=== PATIENT | male | born 1975 | race Caucasian/White ===

== ENCOUNTER 2016-12-20 08:57 | Emergency (ER) | payer OTHER ==
[~2016-12-20] VITALS: Ht 182.9 cm; Wt 62.2 kg
[2016-12-20 09:02] VITALS: TEMP 36.3; Ht 182.9 cm; Wt 62.2 kg
--- NOTE | 2016-12-20 09:22 | EMERGENCY ROOM VISIT NOTE ---
History Report prepared by Iron: Dimas Francisco Under the Supervision of: Dr. Demian Colindres D.O. First contact with patient: 09:06 Chief Complaint: ABDOMINAL PAIN Stated Complaint: ABDOMINAL PAIN ABOVE [place] History of Present Illness The patient is a 41 year old male who presents to the Emergency Room with complaints of waxing and waning abdominal pain that started around a month ago. The patient has also been having intermittent nausea. He says he has never had abdominal pain this bad before. The patient notes that the pain sometimes worsens when he crunches his abdomen upward. He denies any vomiting, hematuria, melena, or hematochezia. The patient takes Prilosec occasionally for ulcers. He had hernia surgery in 2002, and still has his gall bladder. The patient smokes a half a pack of cigarettes per day. He had his heart checked out in the beginning of November in [place] for occasional chest discomfort, and everything came back normal. He notes that he does a lot of heavy lifting at work. Source of History: patient Onset: A month ago Position: abdomen Timing: waxes/wanes Modifying Factors (Worsening): other (crunching abdomen upward) Associated Symptoms: + nausea, No hematochezia, No melena, No urinary symptoms, No vomiting Review of Systems See HPI for pertinent positives & negatives. A total of 10 systems reviewed and were otherwise negative. Past Medical & Surgical Medical Problems: (1) History of stomach ulcers Surgical Problems: (1) History of hernia surgery Family History Cancer Diabetes mellitus Gallbladder disease Heart disease Hypertension Kidney disease Seizures Social History Smoking Status: Current Every Day Smoker Alcohol Use: none Marital Status: Housing Status: lives with family Occupation Status: employed Current/Historical Medications Scheduled Omeprazole (Prilosec), 20 MG PO DAILY Omeprazole (Prilosec), 20 MG PO DAILY Allergies Coded Allergies: No Known Allergies (Unverified Allergy, Unknown, 04/30/03) Uncoded Allergies: NONE (Allergy, Unknown, 11/01/02) Physical Exam Vital Signs Date Time Temp Pulse Resp B/P Pulse Ox O2 Delivery O2 Flow Rate FiO2 12/20/16 14:13 72 18 116/88 98 12/20/16 13:12 51 12/20/16 11:29 49 16 116/67 98 Room Air 12/20/16 10:10 57 12/20/16 09:02 36.3 62 16 126/75 96 Room Air Physical Exam GENERAL: Patient is awake, alert, and in no acute distress. Patient is resting comfortably and showing no signs of anxiety EYES: The conjunctivae are clear. The pupils are round and reactive. EARS, NOSE, MOUTH AND THROAT: The nose is without any evidence of any deformity. Mucous membranes are moist tongue is midline NECK: The neck is nontender and supple. RESPIRATORY: Normal respiratory effort is noted there is no evidence of wheezing rhonchi or rales CARDIOVASCULAR: Regular rate and rhythm noted there no murmurs rubs or gallops normal S1 normal S2 GASTROINTESTINAL: The abdomen is soft. There was epigastric and right upper quadrant tenderness to palpation but no guarding or rigidity. BACK: No midline tenderness or or step-off noted range of motion in flexion extension as well as rotation no signs of muscle spasm noted MUSCULOSKELETAL/EXTREMITIES: There is no evidence of gross deformity full range of motion is noted in the hips and shoulders SKIN: There is no obvious evidence of any rash. There are no petechiae, pallor or cyanosis noted. NEUROLOGIC: Patient is awake alert and oriented x3. Medical Decision & Procedures ER Provider Diagnostic Interpretation: X-ray results as stated below per interpretation by me and the radiologist. ABDOMEN 2VIEW W/PA CHEST RTN CLINICAL HISTORY: ABDOMINAL PAIN/GI pain. Nausea. COMPARISON STUDY: No previous studies for comparison. FINDINGS: The soft tissues, psoas shadows, renal outlines and intestinal gas pattern appear normal. There is no evidence for bowel obstruction. There is no evidence for free intraperitoneal air. No abnormal abdominal calcifications are seen. A frontal view of the chest was performed and is unremarkable. IMPRESSION: Normal study. Electronically signed by: Fab Meyers M.D. 12/20/2016 11:26 AM Dictated Date/Time: 12/20/2016 11:25 AM BILIARY ULTRASOUND CLINICAL HISTORY: Abdominal pain COMPARISON STUDY: No previous studies for comparison. FINDINGS: The pancreas appears sonographically normal. No gallstones are visualized. There is no gallbladder wall thickening, and no pericholecystic fluid. No hepatic masses are visualized. There is no ductal dilatation. The common bile duct measures 3 mm. There is no right-sided hydronephrosis. IMPRESSION: Normal study Electronically signed by: Kris Gilmore M.D. 12/20/2016 12:26 PM Dictated Date/Time: 12/20/2016 12:25 PM Laboratory Results 12/20/16 09:20 Red Blood Count 5.08, Mean Corpuscular Volume 90.7, Mean Corpuscular Hemoglobin 31.7, Mean Corpuscular Hemoglobin Concent 34.9, Mean Platelet Volume 10.9, Neutrophils (%) (Auto) 60.7, Lymphocytes (%) (Auto) 27.4, Monocytes (%) (Auto) 10.2, Eosinophils (%) (Auto) 1.3, Basophils (%) (Auto) 0.1, Neutrophils # (Auto ) 5.65, Lymphocytes # (Auto) 2.55, Monocytes # (Auto) 0.95, Eosinophils # (Auto ) 0.12, Basophils # (Auto) 0.01 12/20/16 09:20 Test 12/20/16 09:20 12/20/16 10:45 12/20/16 11:45 White Blood Count 9.31 K/uL (4.8-10.8) Red Blood Count 5.08 M/uL (4.7-6.1) Hemoglobin 16.1 g/dL (14.0-18.0) Hematocrit 46.1 % (42-52) Mean Corpuscular Volume 90.7 fL (80-100) Mean Corpuscular Hemoglobin 31.7 pg (25-34) Mean Corpuscular Hemoglobin Concent 34.9 g/dl (32-36) Platelet Count 232 K/uL (130-400) Mean Platelet Volume 10.9 fL (7.4-10.4) Neutrophils (%) (Auto) 60.7 % Lymphocytes (%) (Auto) 27.4 % Monocytes (%) (Auto) 10.2 % Eosinophils (%) (Auto) 1.3 % Basophils (%) (Auto) 0.1 % Neutrophils # (Auto) 5.65 K/uL (1.4-6.5) Lymphocytes # (Auto) 2.55 K/uL (1.2-3.4) Monocytes # (Auto) 0.95 K/uL (0.11-0.59) Eosinophils # (Auto) 0.12 K/uL (0-0.5) Basophils # (Auto) 0.01 K/uL (0-0.2) RDW Standard Deviation 42.5 fL (36.4-46.3) RDW Coefficient of Variation 12.8 % (11.5-14.5) Immature Granulocyte % (Auto) 0.3 % Immature Granulocyte # (Auto) 0.03 K/uL (0.00-0.02) Prothrombin Time 10.5 SECONDS (9.0-12.0) Prothromb Time International Ratio 1.0 (0.9-1.1) Activated Partial Thromboplast Time 25.0 SECONDS (21.0-31.0) Partial Thromboplastin Ratio 1.0 Anion Gap 8.0 mmol/L (3-11) Est Creatinine Clear Calc Drug Dose 87.3 ml/min Estimated GFR () 110.5 Estimated GFR (Non- 95.4 BUN/Creatinine Ratio 17.6 (10-20) Calcium Level 9.3 mg/dl (8.5-10.1) Total Bilirubin 0.6 mg/dl (0.2-1) Direct Bilirubin 0.1 mg/dl (0-0.2) Aspartate Amino Transf (AST/SGOT) 21 U/L (15-37) Alanine Aminotransferase (ALT/SGPT) 34 U/L (12-78) Alkaline Phosphatase 54 U/L (45-117) Total Creatine Kinase 276 U/L (39-308) Creatine Kinase MB 2.4 ng/ml (0.5-3.6) Creatine Kinase MB Ratio 0.9 (0-3.0) Total Protein 7.9 gm/dl (6.4-8.2) Albumin 4.3 gm/dl (3.4-5.0) Lipase 124 U/L (73-393) Urine Color YELLOW Urine Appearance CLEAR (CLEAR) Urine pH 6.0 (4.5-7.5) Urine Specific [place] 1.017 (1.000-1.030) Urine Protein NEG (NEG) Urine Glucose (UA) NEG (NEG) Urine Ketones NEG (NEG) Urine Occult Blood NEG (NEG) Urine Nitrite NEG (NEG) Urine Bilirubin NEG (NEG) Urine Urobilinogen NEG (NEG) Urine Leukocyte Esterase NEG (NEG) Troponin I 0.018 ng/ml (0-0.045) Laboratory results per my review. Medications Administered Medications (Trade) Dose Ordered Sig/Cely Route Start Time Stop Time Status Last Admin Dose Admin Pantoprazole Sodium 40 mg/ Syringe 10 ml @ 5 mls/min NOW ONCE IV 4/3/17 09:30 12/20/16 09:31 DC 12/20/16 10:04 5 MLS/MIN Sodium Chloride (Nss 1000ml) 1,000 ml @ 999 mls/hr Q1H1M STAT IV 12/20/16 09:23 12/20/16 10:23 DC 12/20/16 10:04 999 MLS/HR ECG Indication: abdominal pain Rate (beats per minute): 48 Rhythm: sinus bradycardia Findings: no ectopy, other (no acute ST segment abnormalities) Comparison ECG Date: no prior available Change: Repeat ECG: Sinus bradycardia at 50 bpm, no ectopy, no acute ST segment abnormalities, no change from previous. ED Course 907: The patient was evaluated in room B5. A complete history and physical examination were performed. 922: Ordered NSS 1000 ml @ 999 mls/hr IV. 30: Ordered Pantoprazole Sodium 40 mg/Syringe 10 ml @ 5 mls/min IV. 1316: I reevaluated the patient and he is sitting up in bed. 1332: I discussed the patient with Dr. Palacio - [facility] - he says that we should keep the patient and stress him. 1349: I reevaluated the patient and he wants to go home. The patient verbally expressed understanding and agreement of the treatment plan. The patient will be discharged against medical advice. Medical Decision Differential diagnosis: Etiologies such as appendicitis, diverticulitis, PUD, biliary pathology, UTI, pancreatitis, obstruction, mesenteric ischemia, aortic pathology, infections, inflammatory bowel disease, renal colic, as well as others were entertained. Nursing notes reviewed. The patient is a 41-year-old male who presented to the emergency department for epigastric discomfort. The patient's history as well as physical exam appeared to be more consistent with a GI cause for his pain. His initial troponin did show a slight elevation from the normal range but was not in the positive range. This reason serial troponins and EKGs were done. There was not much difference. The patient was pain-free on subsequent reevaluation. He was treated with proton pump inhibitors. I discussed the patient's laboratory and radiographic studies with him. I also discussed this case with the on-call heavy equipment sales associate and he recommended that the patient stay in the hospital for formal stress testing if his troponin did not go any higher. I discussed this plan with the patient and he did not wish to stay in the hospital. I tried to encourage him to stay in the hospital. The patient eventually did sign out against lpn or medical assistant. But I did give him discharge instructions which encouraged him to rest and avoid any strenuous activity. He was also encouraged to start taking a baby aspirin a day. He was also encouraged to follow-up with his family doctor soon as possible for formal stress testing but return to the emergency department immediately if symptoms change worsen or the need arises. Consults Time Called: 1330 Consulting Physician: Dr. Pia Choudhury cardiology Returned Call: 1332 I discussed the patient with Dr. Pia Choudhury cardiology - he says that we should keep the patient and stress him. Impression Primary Impression: Epigastric pain Additional Impression: Elevated troponin Scribe Attestation The scribe's documentation has been prepared under my direction and personally reviewed by me in its entirety. I confirm that the note above accurately reflects all work, treatment, procedures, and medical decision making performed by me. Departure Information Dispostion Against Medical Advice Prescriptions Omeprazole (Prilosec) 20 Mg Capcr 20 MG PO DAILY, #30 CAP Prov: Demian Colindres, DO 12/20/16 Referrals Vini Vivas M.D. (PCP) Forms Call Back Authorization, HOME CARE DOCUMENTATION FORM, IMPORTANT VISIT INFORMATION, Work Instructions Patient Instructions ED Chest Pain Atypical Unkn Cause, My [facility] Additional Instructions Call your family to schedule a follow-up appointment. Start taking a baby aspirin every morning. I would recommend a stress test as soon as possible. Rest and avoid any strenuous activity. Return to the emergency department immediately if symptoms change worsen or if the need arises. Problem Qualifiers
[2016-12-20] MEDS ORDERED: SODIUM CHLORIDE 0.9% 1000ML 1,000 ML IV STA (09:23)
[2016-12-20] MEDS ORDERED: PANTOprazole INJ 40 MG in SYRINGE 0 ML IV ONE (09:30)
[2016-12-20 09:48] LABS: BASO % 0.1 %; BASO ABS # 0.01 K/uL (0-0.2); COMPLETE YES; EOS % 1.3 %; HEMATOCRIT 46.1 % (42-52); IG% 0.3 %; LYMPH % 27.4 %; LYMPH ABS # 2.55 K/uL (1.2-3.4); MEAN CELL VOLUME 90.7 fL (80-100); MEAN CORPUSCULAR HEMOGLOBIN 31.7 pg (25-34); MEAN CORPUSCULAR HGB CONC 34.9 g/dl (32-36); MEAN PLATELET VOLUME 10.9 fL (7.4-10.4); MONO % 10.2 %; NEUT % 60.7 %; PLATELET COUNT 232 K/uL (130-400); RED BLOOD COUNT 5.08 M/uL (4.7-6.1); WHITE BLOOD COUNT 9.31 K/uL (4.8-10.8)
[2016-12-20 09:57] LABS: PROTHROMBIN TIME (PATIENT) 10.5 SECONDS (9.0-12.0)
[2016-12-20 10:05] LABS: BUN/CREATININE RATIO 17.6 (10-20); CALCIUM 9.3 mg/dl (8.5-10.1); CREATININE 0.98 mg/dl (0.60-1.40); POTASSIUM 3.6 mmol/L (3.5-5.1)
[2016-12-20 10:10] LABS: CKMB/CK RATIO 0.9 (0-3.0)
[2016-12-20 11:26] LABS: URINE APPEARANCE CLEAR (CLEAR); URINE BILIRUBIN NEG (NEG); URINE COLOR YELLOW; URINE NITRITE NEG (NEG); URINE SPECIFIC GRAVITY 1.017 (1.000-1.030); UROBILINOGEN NEG (NEG)
--- NOTE | 2016-12-20 11:27 | DIAGNOSTIC IMAGING REPORT ---
ABDOMEN 2VIEW W/PA CHEST RTN CLINICAL HISTORY: ABDOMINAL PAIN/GI pain. Nausea. COMPARISON STUDY: No previous studies for comparison. FINDINGS: The soft tissues, psoas shadows, renal outlines and intestinal gas pattern appear normal. There is no evidence for bowel obstruction. There is no evidence for free intraperitoneal air. No abnormal abdominal calcifications are seen. A frontal view of the chest was performed and is unremarkable. IMPRESSION: Normal study. Electronically signed by: Fab Meyers M.D. 12/20/2016 11:26 AM Dictated Date/Time: 12/20/2016 11:25 AM
[2016-12-20 11:34] LABS: MANUAL MICROSCOPIC REQUIRED? NO; REVIEW REQ? NO
--- NOTE | 2016-12-20 12:28 | DIAGNOSTIC IMAGING REPORT ---
BILIARY ULTRASOUND CLINICAL HISTORY: Abdominal pain COMPARISON STUDY: No previous studies for comparison. FINDINGS: The pancreas appears sonographically normal. No gallstones are visualized. There is no gallbladder wall thickening, and no pericholecystic fluid. No hepatic masses are visualized. There is no ductal dilatation. The common bile duct measures 3 mm. There is no right-sided hydronephrosis. IMPRESSION: Normal study Electronically signed by: Kris Gilmore M.D. 12/20/2016 12:26 PM Dictated Date/Time: 12/20/2016 12:25 PM
[2016-12-20] MEDS ORDERED: OMEP20CA59 PO (13:50)
[2016-12-20 14:13] VITALS: BP 116/88; PULSE 72; O2SAT 98
[2016-12-25] MEDS ORDERED: PRLSR20 PO (09:21)
== END 2016-12-20 14:15 | disposition left against medical advice (07) ==
LOC: C.EDB 08:59
DX: R10.13 Epigastric pain (principal); R79.89 Other specified abnormal findings of blood chemistry; F17.200 Nicotine dependence, unspecified, uncomplicated

== ENCOUNTER 2016-12-25 17:59 | Emergency (ER) | payer OTHER ==
[~2016-12-25] VITALS: Ht 182.9 cm; Wt 60.9 kg
[~2016-12-25 17:59] MED LIST: OMEP20CA59 PO; PRLSR20 PO
[2016-12-25 18:01] VITALS: TEMP 36.5; Ht 182.9 cm; Wt 60.9 kg
[2016-12-25] MEDS ORDERED: FAMOTIDINE 20MG/102 ML D5W IV STA (18:17)
[2016-12-25] MEDS ORDERED: SODIUM CHLORIDE 0.9% 1000ML 1,000 ML IV STA (18:23)
[2016-12-25 18:53] LABS: BASO % 0.1 %; BASO ABS # 0.01 K/uL (0-0.2); COMPLETE YES; EOS % 0.3 %; HEMATOCRIT 43.7 % (42-52); IG% 0.2 %; LYMPH % 10.7 %; LYMPH ABS # 1.23 K/uL (1.2-3.4); MEAN CELL VOLUME 90.3 fL (80-100); MEAN CORPUSCULAR HEMOGLOBIN 31.4 pg (25-34); MEAN CORPUSCULAR HGB CONC 34.8 g/dl (32-36); MEAN PLATELET VOLUME 10.6 fL (7.4-10.4); NEUT % 82.7 %; PLATELET COUNT 221 K/uL (130-400); RED BLOOD COUNT 4.84 M/uL (4.7-6.1); WHITE BLOOD COUNT 11.49 K/uL (4.8-10.8)
[2016-12-25 19:08] LABS: CALCIUM 9.2 mg/dl (8.5-10.1); POTASSIUM 3.7 mmol/L (3.5-5.1)
[2016-12-25 19:57] LABS: URINE APPEARANCE CLOUDY (CLEAR); URINE BILIRUBIN NEG (NEG); URINE COLOR YELLOW; URINE EPITHELIAL CELL AUTO 0-5 /lpf (0-5); URINE NITRITE NEG (NEG); URINE SPECIFIC GRAVITY 1.015 (1.000-1.030); UROBILINOGEN NEG (NEG); ZZUR CULT IF INDIC CLEAN CATCH NO
[2016-12-25 20:01] LABS: MANUAL MICROSCOPIC REQUIRED? NO; REVIEW REQ? NO
--- NOTE | 2016-12-25 20:06 | EMERGENCY ROOM VISIT NOTE ---
History First contact with patient: 18:09 Chief Complaint: OTHER COMPLAINT Stated Complaint: POSSIBLE SEVERE SIDE EFFECTS OF PRILOSEC History of Present Illness The patient is a 41 year old male who presents to the Emergency Room with complaints stating that since starting the Prilosec he feels like he cannot eat very much at a time. He states he feels very "full" he denies any nausea or vomiting. The patient also states that he has urinary frequency but denies any dysuria or hematuria. The patient also admits that his hands feel cold and has some soreness in the left side of his neck and he had one cramp in his left leg yesterday. The patient denies any chest pain or shortness of breath. The patient has an appointment scheduled on January [address] Sutton in gastroenterology for further evaluation. Review of Systems 10 system review was performed and was negative unless stated otherwise history of present illness. Past Medical/Surgical History Medical Problems: (1) History of stomach ulcers Surgical Problems: (1) History of hernia surgery Family History Cancer Diabetes mellitus Gallbladder disease Heart disease Hypertension Kidney disease Seizures Social History Smoking Status: Current Every Day Smoker Alcohol Use: none Marital Status: Housing Status: lives with family Occupation Status: employed Current/Historical Medications Scheduled Omeprazole (Prilosec), 20 MG PO DAILY Allergies Coded Allergies: No Known Allergies (Unverified , 04/30/03) Physical Exam Vital Signs Date Time Temp Pulse Resp B/P Pulse Ox O2 Delivery O2 Flow Rate FiO2 12/25/16 19:25 53 18 129/76 99 Room Air 12/25/16 18:01 36.5 68 18 158/87 97 Room Air Physical Exam GENERAL: 41-year-old very thin male appears in no acute distress. MENTAL Status: Alert and oriented 3. MOUTH: Mucosa is moist. Poor dental hygiene. PHARYNX: Mild erythema, no edema noted. Airway is adequate. NECK: Supple, no lymphadenopathy noted. No carotid bruits noted. LUNGS: Clear auscultation without wheezes rales or rhonchi. CARDIAC: Regular rate and rhythm without murmur. Pulses is full and equal throughout. BACK: No CVA tenderness noted. ABDOMEN: Positive bowel sounds all 4 quadrants. Soft, tenderness palpation in the epigastric region otherwise nontender to palpation without organomegaly or masses. EXTREMITIES: No cyanosis or edema noted. Calves are nontender. Negative Homans bilaterally. Medical Decision & Procedures Laboratory Results 12/25/16 18:35 Red Blood Count 4.84, Mean Corpuscular Volume 90.3, Mean Corpuscular Hemoglobin 31.4, Mean Corpuscular Hemoglobin Concent 34.8, Mean Platelet Volume 10.6, Neutrophils (%) (Auto) 82.7, Lymphocytes (%) (Auto) 10.7, Monocytes (%) (Auto) 6.0, Eosinophils (%) (Auto) 0.3, Basophils (%) (Auto) 0.1, Neutrophils # (Auto) 9.51, Lymphocytes # (Auto) 1.23, Monocytes # (Auto) 0.69, Eosinophils # (Auto) 0.03, Basophils # (Auto) 0.01 12/25/16 18:35 Test 12/25/16 18:35 12/25/16 19:15 White Blood Count 11.49 K/uL (4.8-10.8) Red Blood Count 4.84 M/uL (4.7-6.1) Hemoglobin 15.2 g/dL (14.0-18.0) Hematocrit 43.7 % (42-52) Mean Corpuscular Volume 90.3 fL (80-100) Mean Corpuscular Hemoglobin 31.4 pg (25-34) Mean Corpuscular Hemoglobin Concent 34.8 g/dl (32-36) Platelet Count 221 K/uL (130-400) Mean Platelet Volume 10.6 fL (7.4-10.4) Neutrophils (%) (Auto) 82.7 % Lymphocytes (%) (Auto) 10.7 % Monocytes (%) (Auto) 6.0 % Eosinophils (%) (Auto) 0.3 % Basophils (%) (Auto) 0.1 % Neutrophils # (Auto) 9.51 K/uL (1.4-6.5) Lymphocytes # (Auto) 1.23 K/uL (1.2-3.4) Monocytes # (Auto) 0.69 K/uL (0.11-0.59) Eosinophils # (Auto) 0.03 K/uL (0-0.5) Basophils # (Auto) 0.01 K/uL (0-0.2) RDW Standard Deviation 42.2 fL (36.4-46.3) RDW Coefficient of Variation 12.7 % (11.5-14.5) Immature Granulocyte % (Auto) 0.2 % Immature Granulocyte # (Auto) 0.02 K/uL (0.00-0.02) Anion Gap 5.0 mmol/L (3-11) Est Creatinine Clear Calc Drug Dose 83.7 ml/min Estimated GFR () 107.9 Estimated GFR (Non- 93.1 BUN/Creatinine Ratio 11.0 (10-20) Calcium Level 9.2 mg/dl (8.5-10.1) Total Bilirubin 0.4 mg/dl (0.2-1) Direct Bilirubin 0.1 mg/dl (0-0.2) Aspartate Amino Transf (AST/SGOT) 15 U/L (15-37) Alanine Aminotransferase (ALT/SGPT) 40 U/L (12-78) Alkaline Phosphatase 54 U/L (45-117) Total Protein 7.7 gm/dl (6.4-8.2) Albumin 4.3 gm/dl (3.4-5.0) Lipase 117 U/L (73-393) Urine Color YELLOW Urine Appearance CLOUDY (CLEAR) Urine pH 7.0 (4.5-7.5) Urine Specific [place] 1.015 (1.000-1.030) Urine Protein NEG (NEG) Urine Glucose (UA) NEG (NEG) Urine Ketones NEG (NEG) Urine Occult Blood NEG (NEG) Urine Nitrite NEG (NEG) Urine Bilirubin NEG (NEG) Urine Urobilinogen NEG (NEG) Urine Leukocyte Esterase NEG (NEG) Urine WBC (Auto) 0 /hpf (0-5) Urine RBC (Auto) 0-4 /hpf (0-4) Urine Hyaline Casts (Auto) 0 /lpf (0-5) Urine Epithelial Cells (Auto) 0-5 /lpf (0-5) Urine Bacteria (Auto) NEG (NEG) Medications Administered Medications (Trade) Dose Ordered Sig/Cely Route Start Time Stop Time Status Last Admin Dose Admin Famotidine 20 mg 20 mg ONE STAT IV 12/25/16 18:17 12/25/16 18:18 DC 12/25/16 18:37 20 MG Sodium Chloride (Nss 1000ml) 1,000 ml @ 999 mls/hr Q1H1M STAT IV 12/25/16 18:23 12/25/16 19:23 DC 12/25/16 18:37 999 MLS/HR ED Course The patient was evaluated. IV access was obtained. The patient was given 1 L normal saline. CBC and differential, renal profile, LFTs and lipase levels were ordered. Urinalysis was ordered. The patient was given Pepcid 20 mg IV. Labs are reviewed. The patient's white count was only slightly elevated. Metabolic profile was normal. The patient urinalysis was negative. The patient was reevaluated was feeling slightly better. The patient was discharged home in stable condition. Medical Decision I discussed with the patient that this was not allergic reaction but that he could be side effects of the medication although these would be rare. I repeated the patient's lab work and did a urinalysis since he was complaining of some urinary frequency. Labs and urinalysis were unremarkable. I decided that the patient should discontinue his Prilosec and started on Zantac. Patient is in agreement. He already has an appointment set up with gastroenterology for definitive diagnosis and treatment. Impression Primary Impression: Epigastric pain Additional Impression: Intolerance of drug Departure Information Dispostion Home / Self-Care Condition GOOD Referrals Vini Vivas M.D. (PCP) Forms HOME CARE DOCUMENTATION FORM, IMPORTANT VISIT INFORMATION, WORK / SCHOOL INSTRUCTIONS Patient Instructions My [facility] Additional Instructions Discontinue Prilosec. Take Zantac 150 mg once daily. Avoid any spicy or acidic foods. Keep scheduled appointment with gastroenterology for definitive diagnosis and treatment. If you have any worsening of symptoms such as severe abdominal pain, uncontrolled nausea vomiting return to ER immediately. Problem Qualifiers
[2016-12-25 20:29] VITALS: BP 110/66; PULSE 54; O2SAT 97
== END 2016-12-25 20:30 | disposition home or self-care (01) ==
LOC: C.EDB 18:01 → C.EDC 20:30
DX: R10.13 Epigastric pain (principal); T47.1X5A Adverse effect of other antacids and anti-gastric-secretion drugs, initial encounter; F17.210 Nicotine dependence, cigarettes, uncomplicated; Z80.9 Family history of malignant neoplasm, unspecified; R35.0 Frequency of micturition; Z83.3 Family history of diabetes mellitus; Z82.49 Family history of ischemic heart disease and other diseases of the circulatory system; Z82.0 Family history of epilepsy and other diseases of the nervous system; Z79.899 Other long term (current) drug therapy

== ENCOUNTER 2016-12-28 00:14 | Emergency (ER) | payer OTHER ==
[~2016-12-28] VITALS: Ht 182.9 cm; Wt 61.4 kg
[~2016-12-28 00:14] MED LIST changes: -OMEP20CA59 PO
[2016-12-28 00:15] VITALS: TEMP 36.4; Ht 182.9 cm; Wt 61.4 kg
[2016-12-28] MEDS ORDERED: FAMOTIDINE 20MG/102 ML D5W IV STA (00:26)
[2016-12-28 00:58] LABS: BASO % 0.1 %; BASO ABS # 0.01 K/uL (0-0.2); COMPLETE YES; EOS % 0.7 %; IG% 0.3 %; LYMPH % 21.9 %; LYMPH ABS # 2.47 K/uL (1.2-3.4); MEAN CELL VOLUME 89.9 fL (80-100); MEAN CORPUSCULAR HEMOGLOBIN 32.2 pg (25-34); MEAN CORPUSCULAR HGB CONC 35.8 g/dl (32-36); MEAN PLATELET VOLUME 11.2 fL (7.4-10.4); MONO % 7.6 %; NEUT % 69.4 %; PLATELET COUNT 204 K/uL (130-400); RED BLOOD COUNT 5.34 M/uL (4.7-6.1)
[2016-12-28 01:13] LABS: ALT/SGPT 36 U/L (12-78); AST/SGOT 15 U/L (15-37); BLOOD UREA NITROGEN 11 mg/dl (7-18); BUN/CREATININE RATIO 11.3 (10-20); CALCIUM 9.7 mg/dl (8.5-10.1); CARBON DIOXIDE 29 mmol/L (21-32); CHLORIDE 104 mmol/L (98-107); CREATININE 0.93 mg/dl (0.60-1.40); GLUCOSE 90 mg/dl (70-99); POTASSIUM 3.7 mmol/L (3.5-5.1); SODIUM 140 mmol/L (136-145)
[2016-12-28 01:18] LABS: ALKALINE PHOSPHATASE 59 U/L (45-117)
[2016-12-28 02:28] VITALS: BP 126/83; PULSE 55; O2SAT 98
[2016-12-28] MEDS ORDERED: PANTOprazole SOD 40 MG TAB PO STA (02:31)
[2016-12-28] MEDS ORDERED: PANT40TA PO (02:34)
--- NOTE | 2016-12-28 02:34 | EMERGENCY ROOM VISIT NOTE ---
History First contact with patient: 00:19 Chief Complaint: ABDOMINAL PAIN Stated Complaint: SEVERE PAIN IN LOWER ABDOMEN History of Present Illness The patient is a 41 year old male who presents to the Emergency Room with complaints of right upper quadrant discomfort for the past day described as discomfort, 3 out of 10. Nothing makes it better or worse. He tried Zantac. Patient denies chest pain, dyspnea, fever, chills, nausea, vomiting, diarrhea, back pain, urinary symptoms. He is tolerate by mouth fluids and food. Patient does smoke. He has had a hernia repair. Review of Systems See HPI for pertinent positives & negatives. A total of 10 systems reviewed and were otherwise negative. Past Medical/Surgical History Medical Problems: (1) History of stomach ulcers Surgical Problems: (1) History of hernia surgery Family History Cancer Diabetes mellitus Gallbladder disease Heart disease Hypertension Kidney disease Seizures Social History Smoking Status: Current Every Day Smoker Alcohol Use: none Drug Use: none Marital Status: Housing Status: lives with family Occupation Status: employed Current/Historical Medications No Active Prescriptions or Reported Meds Allergies Coded Allergies: Omeprazole (Verified Adverse Reaction, Mild, frequent urination, 12/28/16) Physical Exam Vital Signs Date Time Temp Pulse Resp B/P Pulse Ox O2 Delivery O2 Flow Rate FiO2 12/28/16 02:28 55 16 126/83 98 Room Air 12/28/16 00:15 36.4 55 20 153/90 97 Room Air Physical Exam VITALS: Vitals are noted on the nurse's note and reviewed by myself. Vital signs stable. GENERAL: Pleasant male, in no acute distress, nondiaphoretic, well-developed well-nourished. SKIN: The skin was without rashes, erythema, edema, or bruising. There is no tenting of the skin. Capillary reflex less than 2 seconds. HEAD: Normocephalic atraumatic. EARS: External auditory canals clear, tympanic membranes pearly paz without erythema or effusion bilaterally. EYES: Pupils equal round and reactive to light and accommodation. Conjunctivae without injection, sclerae without icterus. Extraocular movements intact. NOSE: Patent, turbinates without inflammation or discharge. MOUTH: Mucous membranes moist. Pharynx without erythema or exudate. Uvula midline. Airway patent. Tongue does not deviate. NECK: Supple without nuchal rigidity. No lymphadenopathy. No thyromegaly. Cervical spine is nontender. No JVD. HEART: Regular rate and rhythm without murmurs gallops or rubs. LUNGS: Clear to auscultation bilaterally without wheezes, rales or rhonchi. No dullness to percussion. No retractions or accessory muscle use. ABDOMEN: Positive bowel sounds x 4. Normal tympanic percussion. Soft, minimal right upper quadrant discomfort, no CVA tenderness, without masses or organomegaly. Olson sign negative. No guarding or rebound tenderness. MUSCULOSKELETAL: No muscle atrophy, erythema, or edema noted. NEURO: Patient was alert and oriented to person place and time. Normal sensation to light and sharp touch. No focal neurological deficits. Medical Decision & Procedures Laboratory Results 12/28/16 00:48 Red Blood Count 5.34, Mean Corpuscular Volume 89.9, Mean Corpuscular Hemoglobin 32.2, Mean Corpuscular Hemoglobin Concent 35.8, Mean Platelet Volume 11.2, Neutrophils (%) (Auto) 69.4, Lymphocytes (%) (Auto) 21.9, Monocytes (%) (Auto) 7.6, Eosinophils (%) (Auto) 0.7, Basophils (%) (Auto) 0.1, Neutrophils # (Auto) 7.85, Lymphocytes # (Auto) 2.47, Monocytes # (Auto) 0.86, Eosinophils # (Auto) 0.08, Basophils # (Auto) 0.01 12/28/16 00:48 Test 12/28/16 00:48 White Blood Count 11.30 K/uL (4.8-10.8) Red Blood Count 5.34 M/uL (4.7-6.1) Hemoglobin 17.2 g/dL (14.0-18.0) Hematocrit 48.0 % (42-52) Mean Corpuscular Volume 89.9 fL (80-100) Mean Corpuscular Hemoglobin 32.2 pg (25-34) Mean Corpuscular Hemoglobin Concent 35.8 g/dl (32-36) Platelet Count 204 K/uL (130-400) Mean Platelet Volume 11.2 fL (7.4-10.4) Neutrophils (%) (Auto) 69.4 % Lymphocytes (%) (Auto) 21.9 % Monocytes (%) (Auto) 7.6 % Eosinophils (%) (Auto) 0.7 % Basophils (%) (Auto) 0.1 % Neutrophils # (Auto) 7.85 K/uL (1.4-6.5) Lymphocytes # (Auto) 2.47 K/uL (1.2-3.4) Monocytes # (Auto) 0.86 K/uL (0.11-0.59) Eosinophils # (Auto) 0.08 K/uL (0-0.5) Basophils # (Auto) 0.01 K/uL (0-0.2) RDW Standard Deviation 41.6 fL (36.4-46.3) RDW Coefficient of Variation 12.7 % (11.5-14.5) Immature Granulocyte % (Auto) 0.3 % Immature Granulocyte # (Auto) 0.03 K/uL (0.00-0.02) Anion Gap 7.0 mmol/L (3-11) Est Creatinine Clear Calc Drug Dose 90.8 ml/min Estimated GFR () 117.8 Estimated GFR (Non- 101.6 BUN/Creatinine Ratio 11.3 (10-20) Calcium Level 9.7 mg/dl (8.5-10.1) Total Bilirubin 0.4 mg/dl (0.2-1) Direct Bilirubin 0.1 mg/dl (0-0.2) Aspartate Amino Transf (AST/SGOT) 15 U/L (15-37) Alanine Aminotransferase (ALT/SGPT) 36 U/L (12-78) Alkaline Phosphatase 59 U/L (45-117) Troponin I < 0.015 ng/ml (0-0.045) Total Protein 8.5 gm/dl (6.4-8.2) Albumin 4.7 gm/dl (3.4-5.0) Lipase 139 U/L (73-393) Medications Administered Medications (Trade) Dose Ordered Sig/Cely Route Start Time Stop Time Status Last Admin Dose Admin Famotidine (Pepcid 20mg/100 ml) 20 mg ONE STAT IV 12/28/16 00:26 12/28/16 00:28 DC 12/28/16 02:25 20 MG ED Course Prior records/ancillary studies reviewed. Triage Nursing notes reviewed. Additional history obtained from family The patient's history was concerning for abdominal pain. Differential diagnosis: Etiologies such as appendicitis, diverticulitis, PUD, biliary pathology, UTI, pancreatitis, obstruction, mesenteric ischemia, aortic pathology, infections, inflammatory bowel disease, renal colic, as well as others were entertained. Physical examination findings: As above. ER treatment provided: Pepcid On reassessment the patient felt better. Diagnostics interpreted by me: ECG:normal sinus, normal intervals, no acute ST-T wave changes. Impression normal sinus rhythm interpreted by myself The labs revealed mild leukocytosis, stable per chart review. No worrisome electrolyte abnormality. Negative troponin Imaging studies: Ultrasound was negative for acute cholecystitis. Exam and history seem consistent with acid reflux. Patient felt much better after being medicated as above. He's been in the ER multiple times for this. He has a follow-up appointment with GI this month. He was advised to keep it. He was advised to follow-up family care in a few days. He is placed on a PPI. He was advised to return to the immediately for abdominal pain, fevers, vomiting , worsening signs or symptoms or as needed. Patient did not have an acute abdomen on exam. He is well-appearing. By the evaluation outlined above emergent etiologies such as appendicitis, diverticulitis, PUD, biliary pathology, UTI, pancreatitis, obstruction, mesenteric ischemia, aortic pathology, infections, inflammatory bowel disease, renal colic, as well as others were deemed relatively unlikely. The pt informed about the findings as listed above. All questions were answered and pleased with the treatment. Return instructions were outlined and the patient was discharged in stable condition. Outpatient prescription management: Protonix Referral: The patient was referred back to their primary care physician for follow-up in 2 to 3 days for a recheck of the current condition. Case reviewed with my attending Medical Decision As above Impression Primary Impression: Epigastric abdominal pain Additional Impression: GERD (gastroesophageal reflux disease) Departure Information Dispostion Home / Self-Care Condition GOOD Prescriptions No Active Prescriptions or Reported Meds Referrals Vini Vivas M.D. (PCP) Patient Instructions My [facility] Additional Instructions Protonix 40 m tablet daily for next 2 weeks. Take this on an empty stomach. Try Maalox or Zantac for breakthrough symptoms for reflux. Avoid large meals. Avoid acidic foods. Rest and drink plenty of fluids as tolerated. Continue current medications. Avoid strenuous activities and anything that worsens your pain. Resume normal activities once your symptoms resolve. Return to the ER immediately for worsening or persistent chest pain, abdominal pain, black or blood in your stools, vomiting, fevers, chest pains, difficulty breathing, worsening of your condition, or as needed. Follow up with your primary physician in 2-3 days for a recheck of your current condition. Problem Qualifiers Additional Impression: GERD (gastroesophageal reflux disease) Esophagitis presence: esophagitis presence not specified Qualified Codes: K21.9 - Gastro-esophageal reflux disease without esophagitis
--- NOTE | 2016-12-28 07:03 | DIAGNOSTIC IMAGING REPORT ---
CHEST ONE VIEW PORTABLE CLINICAL HISTORY: Chest pain. Right upper quadrant pain. COMPARISON STUDY: Chest radiograph December 20, 2016. FINDINGS: Lung volumes are normal. There is no pneumothorax or pleural effusion. Cardiac size is normal. Mediastinal contours are normal. There is no evidence of pulmonary edema. IMPRESSION: No acute cardiopulmonary findings. Electronically signed by: Anderson Bryan M.D. 12/28/2016 7:01 AM Dictated Date/Time: 12/28/2016 7:00 AM
--- NOTE | 2016-12-28 07:12 | DIAGNOSTIC IMAGING REPORT ---
ABDOMINAL ULTRASOUND, RIGHT UPPER QUADRANT HISTORY: Right upper quadrant abdominal pain. COMPARISON: Right upper quadrant ultrasound December 20, 2016. FINDINGS: Liver is sonographically normal. There is no biliary ductal dilatation. No gallstones are identified. The pancreas is within normal limits. No right hydronephrosis is present. IMPRESSION: No significant abnormality identified within the right upper quadrant. Electronically signed by: Anderson Bryan M.D. 12/28/2016 7:10 AM Dictated Date/Time: 12/28/2016 7:09 AM
== END 2016-12-28 03:00 | disposition home or self-care (01) ==
LOC: C.EDB 00:15 → C.EDA 03:00
DX: R10.13 Epigastric pain (principal); K21.9 Gastro-esophageal reflux disease without esophagitis; K25.9 Gastric ulcer, unspecified as acute or chronic, without hemorrhage or perforation; F17.210 Nicotine dependence, cigarettes, uncomplicated; Z80.9 Family history of malignant neoplasm, unspecified; Z83.3 Family history of diabetes mellitus; Z82.49 Family history of ischemic heart disease and other diseases of the circulatory system; Z83.79 Family history of other diseases of the digestive system

== ENCOUNTER 2016-12-30 13:56 | Emergency (ER) | payer OTHER ==
[~2016-12-30] VITALS: Ht 182.9 cm; Wt 61.6 kg
[~2016-12-30 13:56] MED LIST changes: +PANT40TA PO; -PRLSR20 PO
[2016-12-30 13:59] VITALS: TEMP 36.4; Ht 182.9 cm; Wt 61.6 kg
[2016-12-30 14:18] VITALS: BP 146/78; PULSE 82; O2SAT 98
--- NOTE | 2016-12-30 14:25 | EMERGENCY ROOM VISIT NOTE ---
History First contact with patient: 14:02 Chief Complaint: GI ASSESSMENT Stated Complaint: RIB PAIN, GALLBLADDER Nursing Triage Summary: Pt presents with RUQ pain that started last night and had another "episode" today. Bloating. "There are hard things if I press (on my abdomen)". History of Present Illness The patient is a 41 year old male who presents to the Emergency Room with complaints of an episode of right-sided episode abdominal pain last night. His discomfort is primarily in the right upper quadrant. He states his pain was an 8/10 last night, but resolved without further intervention. The patient states that he has had abdominal bloating today. This is the patient's fourth visit to the ER in the last 2 weeks for similar complaints. His blood work on previous visits has been essentially normal. He has had 2 ultrasounds and x- rays both performed here. He has also had an outpatient CAT scan. None of these have provided a distinct diagnosis for the patient's symptoms. His discomfort has been improved with outpatient proton pump inhibitors, but continues to occur. He has an appointment in about 90 minutes with outpatient gastroenterology. He rates his current discomfort a 1/10. He has not had fever or chills. No chest pain or shortness of breath. Review of Systems More than 10 systems were reviewed and otherwise negative with the exception of history of present illness. Past Medical/Surgical History Medical Problems: (1) History of stomach ulcers Surgical Problems: (1) History of hernia surgery Family History Cancer Diabetes mellitus Gallbladder disease Heart disease Hypertension Kidney disease Seizures Social History Smoking Status: Current Every Day Smoker Alcohol Use: none Drug Use: none Marital Status: Housing Status: lives with family Occupation Status: employed Current/Historical Medications Scheduled Pantoprazole (Protonix), 40 MG PO DAILY Allergies Coded Allergies: Omeprazole (Verified Adverse Reaction, Mild, frequent urination, 12/28/16) Physical Exam Vital Signs Date Time Temp Pulse Resp B/P Pulse Ox O2 Delivery O2 Flow Rate FiO2 12/30/16 13:59 36.4 84 18 154/89 95 Room Air Physical Exam VITALS: Vitals are noted on the nurse's note and reviewed by myself. Vital signs stable. GENERAL: Well-developed, well-nourished, white male, who is in no acute distress and resting comfortably. Patient is cooperative with the examination. HEAD: Normocephalic atraumatic. HEART: Regular rate and rhythm without murmurs gallops or rubs. LUNGS: Clear to auscultation bilaterally without wheezes, rales or rhonchi. No retractions or accessory muscle use. ABDOMEN: Positive normal bowel sounds x 4. Soft with mild right-sided abdominal tenderness, more in the right upper quadrant than right lower quadrant. No rebound or guarding. No CVA tenderness. MUSCULOSKELETAL: No muscle atrophy, erythema, or edema noted. Full range of motion without joint tenderness in all extremities. NEURO: Patient was alert and oriented to person place and time. CN II through XII grossly intact. Medical Decision & Procedures ED Course Physical exam and history were performed. Nursing notes and EMR were reviewed. Patient appears to have right-sided abdominal pain for the past few weeks. He has had multiple imaging studies including CT scan, ultrasound, and plain films that have not shown an acute life-threatening process requiring surgery or admission to the hospital. The patient does have an appointment with outpatient GI in less than 2 hours locally. I had a lengthy discussion with the patient regarding options of care. My preference would be to recheck blood work and perform a CT scan with IV and oral contrast of his abdomen and pelvis. I explained to the patient this would take several hours, at which point he realized that he would miss his GI appointment. Upon his realization the patient expressed his preference to be discharged from the facility and keep his outpatient appointment. Overall this appears reasonable, as the patient has had extensive workup in the past 2 weeks. I thoroughly educated the patient on the importance of returning to the ER if his symptoms worsen. He is to continue his medications as previously prescribed. The patient was otherwise invited back to the ER with any new, worsening, or concerning symptoms. This chart was completed utilizing [employer] Speech Voice Recognition Software. Grammatical errors, random word insertions, pronoun errors, and incomplete sentences are an occasional consequence of this system due to software limitations, ambient noise, and hardware issues. Any formal questions or concerns about the content, text, or information contained within the body of this dictation should be directly addressed to the provider for clarification. . Medical Decision Differential diagnosis: Etiologies such as appendicitis, diverticulitis, PUD, biliary pathology, UTI, pancreatitis, obstruction, mesenteric ischemia, aortic pathology, infections, inflammatory bowel disease, renal colic, as well as others were entertained. Impression Primary Impression: Right sided abdominal pain Departure Information Dispostion Home / Self-Care Condition GOOD Forms HOME CARE DOCUMENTATION FORM, IMPORTANT VISIT INFORMATION Patient Instructions My [facility] Additional Instructions You were seen and evaluated today on an emergency basis only. This is not a substitute for, or an effort to provide, complete comprehensive medical care. It is not possible to recognize and treat all injuries or illnesses in a single emergency department visit. For this reason it is recommended that you followup with Gastroenterology as scheduled later this afternoon for ongoing care and evaluation. You are welcome to return to the emergency department anytime with new, worsening, or concerning symptoms.
== END 2016-12-30 14:22 | disposition home or self-care (01) ==
LOC: C.EDB 13:58 → C.EDC 14:22
DX: R10.11 Right upper quadrant pain (principal); Z80.9 Family history of malignant neoplasm, unspecified; Z82.49 Family history of ischemic heart disease and other diseases of the circulatory system; Z82.0 Family history of epilepsy and other diseases of the nervous system; F17.210 Nicotine dependence, cigarettes, uncomplicated; Z79.899 Other long term (current) drug therapy

== ENCOUNTER 2016-12-30 23:35 | Emergency (ER) | payer OTHER ==
[~2016-12-30] VITALS: Ht 182.9 cm; Wt 61.6 kg
[2016-12-30 23:45] VITALS: TEMP 36.4; Ht 182.9 cm; Wt 61.6 kg
[2016-12-31] MEDS ORDERED: PANTOprazole SOD 40 MG TAB PO STA (00:02)
--- NOTE | 2016-12-31 00:15 | EMERGENCY ROOM VISIT NOTE ---
History Report prepared by Iron: Jefferson Malave Under the Supervision of: Dr. Helga Mejía M.D. First contact with patient: 23:54 Chief Complaint: ABDOMINAL PAIN Stated Complaint: THROBBING PAIN IN UPPER RIGHT ABD History of Present Illness The patient is a 41 year old male who presents to the Emergency Room with complaints of persistent right upper quadrant abdominal pain starting a few weeks ago. He denies any changes in his pain. He describes it to be muscles spasms in the right side of his abdomen and tenderness in the right upper quadrant of abdomen. He reports nausea but denies vomiting. He has worsening pain with sitting and eating. The patient has been taking Zantac without relief. He reports a reduced appetite. He also complains of a low grade fever. He has received an extensive work up for his current abdominal pain in the past month. He was evaluated in the Emergency Room at [facility] yesterday and received a CT scan which was negative. He also had blood work at [facility] which was normal. He saw a house painter helper who scheduled a "gallbladder study." The patient was also prescribed Protonix but he has not taken the prescription yet. He has a history of kidney failure. The patient denies chest pain, shortness of breath, or any other complaints. Source of History: patient Onset: a few weeks ago Position: abdomen (RUQ) Quality: other (muscle spasms and tenderness) Timing: other (persistent) Modifying Factors (Worsening): eating, other (sitting) Modifying Factors (Relieving): other (Zantac without relief) Associated Symptoms: + fevers, + nausea, No SOB, No chest pain, No vomiting Review of Systems See HPI for pertinent positives & negatives. A total of 10 systems reviewed and were otherwise negative. Past Medical & Surgical Medical Problems: (1) History of stomach ulcers Surgical Problems: (1) History of hernia surgery Family History Cancer Diabetes mellitus Gallbladder disease Heart disease Hypertension Kidney disease Seizures Social History Smoking Status: Current Every Day Smoker Alcohol Use: none Drug Use: none Marital Status: Housing Status: lives with family Occupation Status: employed Current/Historical Medications Scheduled Pantoprazole (Protonix), 40 MG PO DAILY Allergies Coded Allergies: Omeprazole (Verified Adverse Reaction, Mild, frequent urination, 12/28/16) Physical Exam Vital Signs Date Time Temp Pulse Resp B/P Pulse Ox O2 Delivery O2 Flow Rate FiO2 12/31/16 00:23 72 16 116/62 96 12/30/16 23:45 36.4 60 18 142/77 98 Room Air Physical Exam Vital signs reviewed. General: Thin, frail, in no significant distress. HEENT: No scleral icterus, PERRLA, neck supple. Atraumatic. Cardiovascular: Regular rate and rhythm, no extra sounds. Pulmonary: Clear to auscultation bilaterally, normal work of breathing. Abdomen: Soft, mild tenderness to palpation of right upper quadrant, no rebound or guarding, nondistended, positive bowel sounds. Musculoskeletal: Atraumatic, no peripheral edema. Neurologic: Patient awake alert and oriented x 3 Skin: Warm, dry, no rash Medical Decision & Procedures Medications Administered Medications (Trade) Dose Ordered Sig/Cely Route Start Time Stop Time Status Last Admin Dose Admin Pantoprazole Sodium (Protonix Tab) 40 mg NOW STAT PO 12/31/16 00:02 12/31/16 00:04 DC 12/31/16 00:10 40 MG ED Course 2354: Past medical records reviewed. The patient was evaluated in room B02. A complete history and physical examination was performed. 0002: Protonix Tab 40 mg PO 0015: Upon reevaluation, the patient appeared to have improvement of his symptoms. I discussed findings with him. He verbalized agreement of the treatment plan. He was discharged home. Medical Decision Differential diagnosis includes but is not limited to chronic abdominal pain, dysfunctional gallbladder, pancreatitis, appendicitis, diverticulitis, colitis. This patient was evaluated and appeared to be in no significant distress. Patient's records were reviewed. He has had multiple visits to the ER this month. He was seen earlier today, left to go to a gastroenterology appointment and has returned. He had a CT scan and laboratory work performed at [facility] yesterday. He reports that the CT scan was normal. At this time the patient is then extensively worked up and is scheduled for presumed HIDA scan and endoscopies. He is connected with gastroenterology. The patient was given a Protonix tablet. He was advised to continue with his appointments. He was reassured regarding the findings and will return to the ER for worsening of symptoms or any medical concerns. Impression Primary Impression: Right upper quadrant abdominal pain Scribe Attestation The scribe's documentation has been prepared under my direction and personally reviewed by me in its entirety. I confirm that the note above accurately reflects all work, treatment, procedures, and medical decision making performed by me. Departure Information Dispostion Home / Self-Care Referrals Vini Vivas M.D. (PCP) Forms Call Back Authorization, HOME CARE DOCUMENTATION FORM, IMPORTANT VISIT INFORMATION Patient Instructions My [facility] Additional Instructions Diagnosis: Right upper quadrant abdominal pain Please follow-up with your scheduled HIDA scan next week. Continue Protonix as prescribed by gastroenterology. Schedule your endoscopies per gastroenterology recommendations. Return to the ER for worsening of symptoms or any medical concerns.
[2016-12-31 00:23] VITALS: BP 116/62; PULSE 72; O2SAT 96
== END 2016-12-31 00:25 | disposition home or self-care (01) ==
LOC: C.EDB 23:36
DX: R10.11 Right upper quadrant pain (principal); Z80.9 Family history of malignant neoplasm, unspecified; Z83.3 Family history of diabetes mellitus; Z82.49 Family history of ischemic heart disease and other diseases of the circulatory system; Z82.0 Family history of epilepsy and other diseases of the nervous system; F17.210 Nicotine dependence, cigarettes, uncomplicated; Z79.899 Other long term (current) drug therapy

== ENCOUNTER 2017-01-02 00:04 | Emergency (ER) | payer OTHER ==
[~2017-01-02] VITALS: Ht 182.9 cm; Wt 61.3 kg
[2017-01-02 00:09] VITALS: TEMP 36.4; Ht 182.9 cm; Wt 61.3 kg
[2017-01-02] MEDS ORDERED: PANT40TA PO (00:18)
[2017-01-02] MEDS ORDERED: FLUT0.15 NAE (00:18)
[2017-01-02] MEDS ORDERED: RANI150T3 PO (00:18)
[2017-01-02] MEDS ORDERED: KETOROLAC TROMETHAMINE 30 MG/ML VIAL IV STA (00:25)
[2017-01-02] MEDS ORDERED: LIDOCAINE HCL 2% VISC SOLN 20 ML UDC PO STA (00:25)
[2017-01-02] MEDS ORDERED: PSEUDOEPHEDRINE HCL 30 MG TAB PO STA (00:25)
[2017-01-02] MEDS ORDERED: ALUMINUM/MAGNESIUM SUSP 30 ML UDC PO STA (00:25)
[2017-01-02 00:47] VITALS: O2SAT 96
[2017-01-02 01:44] LABS: BASO % 0.1 %; BASO ABS # 0.01 K/uL (0-0.2); COMPLETE YES; HEMATOCRIT 41.9 % (42-52); IG% 0.1 %; LYMPH % 24.3 %; LYMPH ABS # 2.41 K/uL (1.2-3.4); MEAN CELL VOLUME 89.7 fL (80-100); MEAN CORPUSCULAR HEMOGLOBIN 31.7 pg (25-34); MEAN CORPUSCULAR HGB CONC 35.3 g/dl (32-36); MEAN PLATELET VOLUME 11.4 fL (7.4-10.4); MONO % 7.5 %; PLATELET COUNT 207 K/uL (130-400); RED BLOOD COUNT 4.67 M/uL (4.7-6.1); WHITE BLOOD COUNT 9.91 K/uL (4.8-10.8)
[2017-01-02 02:03] LABS: ALT/SGPT 32 U/L (12-78); AST/SGOT 14 U/L (15-37); BLOOD UREA NITROGEN 13 mg/dl (7-18); BUN/CREATININE RATIO 15.2 (10-20); CARBON DIOXIDE 32 mmol/L (21-32); CHLORIDE 104 mmol/L (98-107); CREATININE 0.83 mg/dl (0.60-1.40); GLUCOSE 91 mg/dl (70-99); POTASSIUM 3.5 mmol/L (3.5-5.1); SODIUM 142 mmol/L (136-145)
[2017-01-02 02:08] LABS: ALKALINE PHOSPHATASE 54 U/L (45-117)
[2017-01-02] MEDS ORDERED: ALBUTEROL HFA 8 GM INHALER INH STA (03:00)
[2017-01-02] MEDS ORDERED: PRED50TA PO (03:01)
--- NOTE | 2017-01-02 03:17 | EMERGENCY ROOM VISIT NOTE ---
History First contact with patient: 00:14 Chief Complaint: CONGESTION Stated Complaint: TROUBLE BREATHING, SORE CHEST History of Present Illness The patient is a 41 year old male who presents to the Emergency Room with complaints of cough, congestion, sore throat, pleurisy for the past day. Patient is concerned about his heart. No prior heart disease. Patient states he's had a low-grade fever. Patient states every time he coughs he has discomfort in his chest. Patient denies dyspnea, neck stiffness, headache, abdominal pain, vomiting, diarrhea, leg pain or swelling. He is tolerating by mouth fluids and food. Review of Systems See HPI for pertinent positives & negatives. A total of 10 systems reviewed and were otherwise negative. Past Medical/Surgical History Medical Problems: (1) History of stomach ulcers Surgical Problems: (1) History of hernia surgery Family History Cancer Diabetes mellitus Gallbladder disease Heart disease Hypertension Kidney disease Seizures Social History Smoking Status: Current Every Day Smoker Alcohol Use: none Drug Use: none Marital Status: Housing Status: lives with family Occupation Status: employed Current/Historical Medications Scheduled Fluticasone Propionate (Nasal) (Flonase Allergy Relief), 1 SPRAY ERIK DAILY Pantoprazole (Protonix), 40 MG PO DAILY Prednisone (Prednisone), 50 MG PO DAILY Ranitidine Hcl (Zantac), 150 MG PO BID Allergies Coded Allergies: Omeprazole (Verified Adverse Reaction, Intermediate, frequent urination- GI UPSET, 01/02/17) Physical Exam Vital Signs Date Time Temp Pulse Resp B/P Pulse Ox O2 Delivery O2 Flow Rate FiO2 01/02/17 02:34 64 19 110/74 99 Room Air 01/02/17 01:01 50 01/02/17 00:47 96 Room Air 01/02/17 00:34 100 Room Air 01/02/17 00:09 36.4 56 18 122/78 100 Room Air Physical Exam VITALS: Vitals are noted on the nurse's note and reviewed by myself. Vital signs stable. GENERAL: White male with tobacco odor, in no acute distress, nondiaphoretic, well-developed well-nourished. SKIN: The skin was without rashes, erythema, edema, or bruising. There is no tenting of the skin. Capillary reflex less than 2 seconds. HEAD: Normocephalic atraumatic. EARS: External auditory canals clear, tympanic membranes pearly paz without erythema or effusion bilaterally. EYES: Pupils equal round and reactive to light and accommodation. Conjunctivae without injection, sclerae without icterus. Extraocular movements intact. NOSE: Patent, turbinates without inflammation or discharge. No sinus tenderness. MOUTH: Mucous membranes moist. Pharynx without erythema or exudate. Uvula midline. Airway patent. Tongue does not deviate. NECK: Supple without nuchal rigidity. No lymphadenopathy. No thyromegaly. Cervical spine is nontender. No JVD. HEART: Regular rate and rhythm without murmurs gallops or rubs. LUNGS: Clear to auscultation bilaterally without wheezes, rales or rhonchi. No dullness to percussion. No retractions or accessory muscle use. ABDOMEN: Positive bowel sounds x 4. Normal tympanic percussion. Soft, nontender, without masses or organomegaly. Olson sign negative. No guarding or rebound tenderness. MUSCULOSKELETAL: No muscle atrophy, erythema, or edema noted. NEURO: Patient was alert and oriented to person place and time. Normal sensation to light and sharp touch. No focal neurological deficits. Medical Decision & Procedures Laboratory Results 01/02/17 00:40 Red Blood Count 4.67, Mean Corpuscular Volume 89.7, Mean Corpuscular Hemoglobin 31.7, Mean Corpuscular Hemoglobin Concent 35.3, Mean Platelet Volume 11.4, Neutrophils (%) (Auto) 67.0, Lymphocytes (%) (Auto) 24.3, Monocytes (%) (Auto) 7.5, Eosinophils (%) (Auto) 1.0, Basophils (%) (Auto) 0.1, Neutrophils # (Auto) 6.64, Lymphocytes # (Auto) 2.41, Monocytes # (Auto) 0.74, Eosinophils # (Auto) 0.10, Basophils # (Auto) 0.01 01/02/17 00:40 Test 01/02/17 00:40 01/02/17 02:55 White Blood Count 9.91 K/uL (4.8-10.8) Red Blood Count 4.67 M/uL (4.7-6.1) Hemoglobin 14.8 g/dL (14.0-18.0) Hematocrit 41.9 % (42-52) Mean Corpuscular Volume 89.7 fL (80-100) Mean Corpuscular Hemoglobin 31.7 pg (25-34) Mean Corpuscular Hemoglobin Concent 35.3 g/dl (32-36) Platelet Count 207 K/uL (130-400) Mean Platelet Volume 11.4 fL (7.4-10.4) Neutrophils (%) (Auto) 67.0 % Lymphocytes (%) (Auto) 24.3 % Monocytes (%) (Auto) 7.5 % Eosinophils (%) (Auto) 1.0 % Basophils (%) (Auto) 0.1 % Neutrophils # (Auto) 6.64 K/uL (1.4-6.5) Lymphocytes # (Auto) 2.41 K/uL (1.2-3.4) Monocytes # (Auto) 0.74 K/uL (0.11-0.59) Eosinophils # (Auto) 0.10 K/uL (0-0.5) Basophils # (Auto) 0.01 K/uL (0-0.2) RDW Standard Deviation 41.6 fL (36.4-46.3) RDW Coefficient of Variation 12.7 % (11.5-14.5) Immature Granulocyte % (Auto) 0.1 % Immature Granulocyte # (Auto) 0.01 K/uL (0.00-0.02) Anion Gap 6.0 mmol/L (3-11) Est Creatinine Clear Calc Drug Dose 101.6 ml/min Estimated GFR () 126.7 Estimated GFR (Non- 109.3 BUN/Creatinine Ratio 15.2 (10-20) Calcium Level 9.0 mg/dl (8.5-10.1) Total Bilirubin 0.5 mg/dl (0.2-1) Direct Bilirubin 0.1 mg/dl (0-0.2) Aspartate Amino Transf (AST/SGOT) 14 U/L (15-37) Alanine Aminotransferase (ALT/SGPT) 32 U/L (12-78) Alkaline Phosphatase 54 U/L (45-117) Troponin I < 0.015 ng/ml (0-0.045) Total Protein 7.5 gm/dl (6.4-8.2) Albumin 4.2 gm/dl (3.4-5.0) Lipase 135 U/L (73-393) Bedside Troponin I 0.010 ng/ml (0-0.045) Medications Administered Medications (Trade) Dose Ordered Sig/Cely Route Start Time Stop Time Status Last Admin Dose Admin Ketorolac Tromethamine (Toradol Inj) 30 mg NOW STAT IV 01/02/17 00:25 01/02/17 00:27 DC 01/02/17 00:51 30 MG Pseudoephedrine HCl (Sudafed Tab) 60 mg NOW STAT PO 01/02/17 00:25 01/02/17 00:27 DC 01/02/17 00:51 60 MG Lidocaine HCl (Viscous Lidocaine 2% Soln) 10 ml NOW STAT PO 01/02/17 00:25 01/02/17 00:27 DC 01/02/17 00:51 10 ML Al Hydroxide/Mg Hydroxide (Maalox Susp) 30 ml NOW STAT PO 01/02/17 00:25 01/02/17 00:27 DC 01/02/17 00:51 30 ML ED Course Prior records/ancillary studies reviewed. Triage Nursing notes reviewed. Additional history obtained from family. The patient's history was concerning for cold symptoms and chest pain. Differential diagnosis: Etiologies such as pleurisy, bronchitis, cardiac ischemia, aortic dissection, pulmonary embolism, pneumonia, pneumothorax, musculoskeletal, infections, pericarditis, myocarditis, esophageal rupture, gastrointestinal, as well as others were entertained. Physical examination: As above. ER treatment provided: Toradol, GI cocktail, Sudafed On reassessment the patient felt better. Diagnostic interpretation by me: The electrocardiogram was negative for pathologic change. No sinus, normal intervals, incomplete right bundle branch block, no acute ST-T wave changes. Impression sinus bradycardia interpreted by myself. Troponin negative x 2 2 hours apart, negative strep test Imaging studies: Chest x-ray with no acute consolidation, pneumothorax or free air per my interpretation Exam exam and history seem consistent with bronchitis. Patient had no pneumonia on x-ray. He was well-appearing. He was advised take medications as directed and to follow-up family care in a few days or here in the ER sooner for chest pain, difficulty breathing, worsening signs or symptoms or as needed. Normal EKG. Negative troponin. By the evaluation outlined above emergent etiologies such as cardiac ischemia, aortic dissection, pulmonary embolism, pneumonia, pneumothorax, pericarditis, myocarditis, gastrointestinal, as well as others were deemed relatively unlikely. The pt informed about the findings as listed above. All questions were answered and pleased with the treatment. Return instructions were outlined and the patient was discharged in stable condition. Outpatient prescription management: prednisone Referral: The patient was referred back to primary care physician for follow-up in 2 to 3 days for a recheck of the current condition. Case reviewed with my attending Medical Decision As above Impression Primary Impression: Acute bronchitis Additional Impression: Pleurisy Departure Information Dispostion Home / Self-Care Condition GOOD Prescriptions Prednisone (Prednisone) 50 Mg Tab 50 MG PO DAILY for 4 Days, #4 TAB Prov: Rosaura Wood PA-C 01/02/17 Referrals Vini Vivas M.D. (PCP) Patient Instructions My [facility] Additional Instructions Prednisone 50mg: Once daily until the prescription is finished. It is best to take this earlier in the day as some patients note occasional difficulty falling asleep when taken in the late evening. Acetaminophen(Tylenol) may be used for fever or pain. Use 1000mg every six hours as needed. Avoid using more than 3000mg in a 24 hour period. (AND/OR) Ibuprofen(Motrin, Advil) may be used for fever or pain. Use 600mg every six hours as needed. Take with food. Avoid using more than 2400mg in a 24 hour period. Do not use 2400mg per day for more than three consecutive days without physician direction. Prolonged inappropriate use can lead to stomach upset or ulcers. Afrin nasal spray: 2-3 sprays to each nostril twice daily as needed for congestion. Do not use for more than 3-4 days because it can lead to worsening rebound congestion. Pseudoephedrine(Sudaphed): 30-60mg every 6 hours as needed for nasal congestion. Do not take this with other stimulant products or supplements. Albuterol Inhaler: Take 2 puffs four times daily for seven days, then as needed. Rest and drink plenty of fluids. Controlling your fever with Tylenol and Ibuprofen as above will make you feel better. Wash your hands after nose blowing, sneezing, or coughing. Most germs are spread through contact, therefore improper hygiene may result in your close contacts and loved ones becoming ill just like you. Continue current medications. Return to the ER for severe headache, neck stiffness, chest pain, difficulty breathing, fevers, vomiting, worsening of your condition, or as needed. Follow up with your primary physician this week for a recheck of your current condition. Problem Qualifiers Primary Impression: Acute bronchitis Bronchitis organism: unspecified organism Qualified Codes: J20.9 - Acute bronchitis, unspecified
[2017-01-02 03:27] VITALS: BP 112/61; PULSE 61; O2SAT 98
--- NOTE | 2017-01-02 07:59 | DIAGNOSTIC IMAGING REPORT ---
SINGLE VIEW CHEST CLINICAL HISTORY: Atypical chest pain. FINDINGS: An AP, portable, upright chest radiograph is compared to study dated 12/28/2016. The examination is degraded by portable technique and patient rotation. The cardiomediastinal silhouette is unremarkable. The lungs appear mildly hyperinflated, likely due to good inspiratory result. The lungs and pleural spaces are clear. There is mild apical scarring. No pneumothorax is seen. The bony thorax is grossly intact. IMPRESSION: No acute cardiopulmonary abnormality. Electronically signed by: Himanshu Quintana M.D. 01/02/2017 7:57 AM Dictated Date/Time: 01/02/2017 7:56 AM
== END 2017-01-02 03:28 | disposition home or self-care (01) ==
LOC: C.EDB 00:05
DX: J20.9 Acute bronchitis, unspecified (principal); R09.1 Pleurisy; K25.9 Gastric ulcer, unspecified as acute or chronic, without hemorrhage or perforation; F17.210 Nicotine dependence, cigarettes, uncomplicated; Z79.899 Other long term (current) drug therapy

== ENCOUNTER 2017-03-26 12:34 | Emergency (ER) | payer OTHER ==
[~2017-03-26] VITALS: Ht 182.9 cm; Wt 61.6 kg
[~2017-03-26 12:34] MED LIST changes: +FLUT0.15 NAE; +RANI150T3 PO
[2017-03-26 12:43] VITALS: TEMP 36.4; Ht 182.9 cm; Wt 61.6 kg
--- NOTE | 2017-03-26 12:56 | EMERGENCY ROOM VISIT NOTE ---
History Report prepared by Iron: Destinee Weston Under the Supervision of: Dr. Andre Obrien M.D. First contact with patient: 12:46 Chief Complaint: GROIN PAIN Stated Complaint: PAIN IN GROIN, SOUNDS LIKE FLUID History of Present Illness The patient is a 41 year old male who presents to the Emergency Room with complaints of constant right sided groin pain beginning yesterday. He states that he feels the the area is fluid filled yesterday. The patient denies doing heavy lifting recently. The patient had gall bladder surgery on March 23. He notes normal bowel movements. The patient denies fever or chills. Source of History: patient Onset: yesterday Position: other (right groin) Timing: constant Associated Symptoms: No fevers, No chills Note: The patient notes normal bowel movements. Review of Systems All systems have been listed, reviewed, and are negative other than those previously mentioned. Please see Additional Medical History Sheet. Past Medical & Surgical Medical Problems: (1) History of stomach ulcers Surgical Problems: (1) History of hernia surgery Family History Cancer Diabetes mellitus Gallbladder disease Heart disease Hypertension Kidney disease Seizures Social History Smoking Status: Current Every Day Smoker Alcohol Use: none Drug Use: none Marital Status: Housing Status: lives with family Occupation Status: employed Current/Historical Medications No Active Prescriptions or Reported Meds Allergies Coded Allergies: Omeprazole (Verified Adverse Reaction, Intermediate, frequent urination- GI UPSET, 01/02/17) Physical Exam Vital Signs Date Time Temp Pulse Resp B/P (MAP) Pulse Ox O2 Delivery O2 Flow Rate FiO2 03/26/17 13:43 64 18 115/74 99 03/26/17 12:43 36.4 73 18 148/93 97 Room Air Physical Exam GENERAL: Patient awake, alert, oriented x 3. Patient follows commands. Patient does not appear toxic. Patient is adequately hydrated and well- nourished. SKIN: No erythema, pallor, cyanosis or rash HEENT: Normal head, pupils equal, reactive to light and accommodation. LUNGS: Clear to auscultation. No wheezes, no rales, no rhonchi. HEART: No murmurs. No gallops. No rubs ABDOMEN: Multiple healing incisions from recent gall bladder surgery. No masses , no rebound, no hepatomegaly or splenomegaly. RIGHT GROIN: Slight tenderness to right groin, no definite hernia palpated. Circumcised male. No swelling or tenderness to scrotum or testicles. EXTREMITIES: No signs of trauma or infection. NEUROLOGIC: Cranial nerves II-XII within normal limits. No gross motor sensory function deficits. Medical Decision & Procedures Laboratory Results Test 03/26/17 13:00 Urine Color YELLOW Urine Appearance CLEAR (CLEAR) Urine pH 7.5 (4.5-7.5) Urine Specific [place] 1.009 (1.000-1.030) Urine Protein NEG (NEG) Urine Glucose (UA) NEG (NEG) Urine Ketones NEG (NEG) Urine Occult Blood NEG (NEG) Urine Nitrite NEG (NEG) Urine Bilirubin NEG (NEG) Urine Urobilinogen NEG (NEG) Urine Leukocyte Esterase NEG (NEG) Laboratory results as stated above per my review. ED Course 1246: Past medical records reviewed. The patient was evaluated in room B10. A complete history and physical examination was performed. 1329: I reevaluated the patient and discussed his test results. 1345: Upon reevaluation, the patient appeared to have improvement of his symptoms. I discussed today's findings with him. He verbalized agreement of the treatment plan. He was discharged home. Medical Decision Nurses notes reviewed. Medical history sheet reviewed. Differential diagnosis includes but is not limited to: inguinal hernia, muscle strain, status post cholecystectomy. Patient is here with some mild pain in the right groin area. He apparently had some swelling there yesterday. Exam today reveals questionable tenderness and a possible small hernia. There is no swelling. Scrotum and penis appear normal. Urinalysis was clean. This is most likely musculoskeletal pain although the swelling may have been from the recent surgery. In either case, I do not believe the patient requires any intervention at this time. The patient was encouraged to avoid any heavy lifting for the next 2 weeks. Medication Reconciliation: I attest that I have personally reviewed the patient' s current medication list. Blood Pressure Screening: Patient was found to have an elevated blood pressure and was referred to their primary doctor for recheck and further treatment. Impression Primary Impression: Strain of muscle of right groin region Scribe Attestation The scribe's documentation has been prepared under my direction and personally reviewed by me in its entirety. I confirm that the note above accurately reflects all work, treatment, procedures, and medical decision making performed by me. Departure Information Dispostion Home / Self-Care Prescriptions No Active Prescriptions or Reported Meds Referrals Vini Vivas M.D. (PCP) Forms HOME CARE DOCUMENTATION FORM, IMPORTANT VISIT INFORMATION, WORK / SCHOOL INSTRUCTIONS Patient Instructions My [facility] Additional Instructions You may take 650 mg of Tylenol every 4 hours as needed for pain. Avoid any heavy lifting for at least 2 weeks. Return here or to your family physician if swelling or pain gets worse. Follow up with your family physician regarding an elevated blood pressure.
[2017-03-26 13:17] LABS: URINE APPEARANCE CLEAR (CLEAR); URINE BILIRUBIN NEG (NEG); URINE COLOR YELLOW; URINE NITRITE NEG (NEG); URINE PH 7.5 (4.5-7.5); URINE SPECIFIC GRAVITY 1.009 (1.000-1.030); UROBILINOGEN NEG (NEG); ZZUR CULT IF INDIC CLEAN CATCH NO
[2017-03-26 13:22] LABS: MANUAL MICROSCOPIC REQUIRED? NO; REVIEW REQ? NO
[2017-03-26 13:43] VITALS: BP 115/74; PULSE 64; O2SAT 99
== END 2017-03-26 13:45 | disposition home or self-care (01) ==
LOC: C.EDB 12:35
DX: S76.811A Strain of other specified muscles, fascia and tendons at thigh level, right thigh, initial encounter (principal); Z87.19 Personal history of other diseases of the digestive system; Z82.0 Family history of epilepsy and other diseases of the nervous system; Z82.49 Family history of ischemic heart disease and other diseases of the circulatory system; Z83.3 Family history of diabetes mellitus; Z83.79 Family history of other diseases of the digestive system; Z84.1 Family history of disorders of kidney and ureter; F17.200 Nicotine dependence, unspecified, uncomplicated; X58.XXXA Exposure to other specified factors, initial encounter